=== PATIENT | male | born 1965 | race Caucasian/White ===

== ENCOUNTER 2021-04-15 19:50 | Observation (INO) ==
[2021-04-15 20:26] LABS: Basophils % 0.2 %; Hematocrit 41.6 % (37.5-50.1); Hemoglobin 14.7 g/dL (12.9-16.9); Immature Granulocytes % 0.2 % (0-4); Lymphocytes # 0.8 K/mcL (0.6-4.6); Lymphocytes % 16.4 %; Mean Corpuscular HGB Conc 35.3 g/dL (31.6-35.5); Mean Corpuscular Hemoglobin 30.3 pg (28.0-33.3); Mean Corpuscular Volume 85.8 fL (83.0-100.0); Mean Platelet Volume 9.4 fL (9.4-12.4); Monocytes # 0.4 K/mcL (0.0-1.3); Monocytes % 7.3 %; Platelet Count 219 K/mcL (140-400); Red Blood Count 4.85 M/mcL (4.19-5.50); Red Cell Distribution Width 12.5 % (11.5-14.5); Segmented Neutrophils % 75.9 %; White Blood Count 4.9 K/mcL (4.3-11.1)
[2021-04-15 20:29] LABS: Neutrophils # 3.7 K/mcL (1.6-8.9)
[2021-04-15 20:45] LABS: BUN/Creatinine Ratio 15 (6-26); Blood Urea Nitrogen 12 mg/dL (6-20); Calcium 8.5 mg/dL (8.6-10.3); Carbon Dioxide 26 mEq/L (23-29); Chloride 90 mEq/L (98-107); Glucose 211 mg/dL (70-105); Osmolality,Calculated 274 (280-300); Sodium 129 mEq/L (136-145); Troponin I < 0.03 ng/mL (< 0.04); eGFR For African Americans > 60 (> 60); eGFR For Non-African Americans > 60 (> 60)
[2021-04-15 20:49] LABS: Platelet Estimate Normal (Normal); Reactive Lymphocytes Present (Not Present)
[2021-04-15] MEDS ORDERED: *HR* FentaNYL (PF) 100 MCG/2 ML VIAL IVP ONE (22:09)
[2021-04-15] MEDS ORDERED: Ondansetron 4 MG/2 ML VIAL IVP ONE (22:09)
[2021-04-15 22:29] LABS: Bilirubin,Urine Negative (Negative); Blood,Urine Moderate (Negative); Clarity,Urine Clear (Clear); Color,Urine Yellow (Yellow); Glucose,Urine (UA) >=1000 mg/dL (Normal); Ketones,Urine Negative (Negative); Leukocyte Esterase,Urine Negative (Negative); Mucus,Urine Few per lpf (None-Few); Nitrite,Urine Negative (Negative); PH,Urine 6.5 pH Units (5.0-8.0); Protein,Urine 100 mg/dL (Neg-Trace); RBC,Urine 0-3 per hpf (0-3); Specific Gravity,Urine 1.023 (1.010-1.025); Urobilinogen,Urine Normal (Normal); WBC,Urine 0-3 per hpf (0-3)
[2021-04-15] MEDS ORDERED: Melatonin 3 MG TABLET PO PRN (23:24)
[2021-04-15] MEDS ORDERED: Naloxone 0.4 MG/ML INJ IVP PRN (23:24)
[2021-04-15] MEDS ORDERED: Ondansetron 4 MG/2 ML VIAL IVP PRN (23:24)
[2021-04-15] MEDS ORDERED: Isovue-370 500 ML BOTTLE IVP ONE (23:30)
[2021-04-16] MEDS ORDERED: 0.9 % Sodium Chloride 500 ML IVC ONE (00:13)
[2021-04-16] MEDS ORDERED: Dextrose Gel 15 GM/37.5 ML TUBE PO PRN ×2 (00:15)
[2021-04-16] MEDS ORDERED: *HR* Dextrose 50 % in Water (Syg) 50 ML SYRINGE IVP PRN (00:15)
[2021-04-16] MEDS ORDERED: D5% in Water 1,000 ML IVC PRN (00:15)
[2021-04-16 02:01] LABS: Hematocrit 40.5 % (37.5-50.1); Hemoglobin 13.7 g/dL (12.9-16.9); Mean Corpuscular HGB Conc 33.8 g/dL (31.6-35.5); Mean Corpuscular Hemoglobin 29.5 pg (28.0-33.3); Mean Corpuscular Volume 87.1 fL (83.0-100.0); Mean Platelet Volume 9.6 fL (9.4-12.4); Platelet Count 223 K/mcL (140-400); Red Blood Count 4.65 M/mcL (4.19-5.50); Red Cell Distribution Width 12.6 % (11.5-14.5); White Blood Count 5.1 K/mcL (4.3-11.1)
[2021-04-16 02:10] LABS: BUN/Creatinine Ratio 13 (6-26); Blood Urea Nitrogen 11 mg/dL (6-20); C-Reactive Protein 142 mg/L (Less than 10); Calcium 8.2 mg/dL (8.6-10.3); Carbon Dioxide 28 mEq/L (23-29); Chloride 91 mEq/L (98-107); Glucose 145 mg/dL (70-105); Lactate Dehydrogenase 271 Units/L (140-271); Osmolality,Calculated 268 (280-300); Sodium 128 mEq/L (136-145); eGFR For African Americans > 60 (> 60); eGFR For Non-African Americans > 60 (> 60)
[2021-04-16 02:29] LABS: Ferritin 1131 ng/mL (20-250)
[2021-04-16] MEDS ORDERED: Potassium Chloride Elixir 20 MEQ/15 ML UDC PO ONE (03:22)
[2021-04-16] MEDS ORDERED: Ipratropium 1 PUFF INHALER IH PRN (03:35)
[2021-04-16] MEDS: *HR* HYDROcodone/Acet 5/325 mg TABLET PO PRN ×2 (03:36→18:53)
[2021-04-16] MEDS ORDERED: 0.9 % Sodium Chloride 1,000 ML IVC SCH (04:45)
[2021-04-16 04:57] LABS: Alanine Aminotransferase 32 Units/L (7-52); Albumin 3.6 g/dL (3.5-5.7); Albumin/Globulin Ratio 1.1 (1.1-2.2); Alkaline Phosphatase 71 Units/L (34-104); Aspartate Amino Transferase 33 Units/L (13-39); Bilirubin,Direct 0.2 mg/dL (0.0-0.2); Bilirubin,Indirect 0.6 mg/dL (0.0-1.0); Bilirubin,Total 0.8 mg/dL (0.3-1.0); Globulin 3.4 g/dL (2.4-3.5)
[2021-04-16] MEDS: *HR* Enoxaparin 40 MG/0.4 ML SYRINGE SQ SCH (06:14)
[2021-04-16] MEDS: Insulin LISPRO 300 UNITS/3 ML VIAL SUBQ SCH ×3 (09:15→18:53)
[2021-04-16] MEDS: 0.9 % Sodium Chloride 1,000 ML IVC SCH (19:49)
[2021-04-17] MEDS: 0.9 % Sodium Chloride 1,000 ML IVC SCH ×2 (05:42→09:56)
[2021-04-17] MEDS: *HR* Enoxaparin 40 MG/0.4 ML SYRINGE SQ SCH (05:42)
[2021-04-17] MEDS ORDERED: Cholecalciferol (D-3) 1,000 UNIT (25MCG) TABLET PO SCH (09:00)
[2021-04-17] MEDS: *HR* HYDROcodone/Acet 5/325 mg TABLET PO PRN (09:48)
[2021-04-17] MEDS: Insulin LISPRO 300 UNITS/3 ML VIAL SUBQ SCH ×2 (09:49→13:48)
[2021-04-17 10:43] LABS: BUN/Creatinine Ratio 19 (6-26); Blood Urea Nitrogen 14 mg/dL (6-20); Calcium 8.6 mg/dL (8.6-10.3); Carbon Dioxide 29 mEq/L (23-29); Chloride 100 mEq/L (98-107); Glucose 228 mg/dL (70-105); Osmolality,Calculated 288 (280-300); Potassium 4.1 mEq/L (3.5-5.1); Sodium 135 mEq/L (136-145); eGFR For African Americans > 60 (> 60); eGFR For Non-African Americans > 60 (> 60)
[2021-04-17 16:35] VITALS: BP 117/76; PULSE 72; TEMP 97.9; O2SAT 94
== END 2021-04-17 20:02 | disposition home or self-care (01) ==
LOC: 3NENU 19:50 → EMEROOARM 19:50 → 3NENU 04-16 00:34
PROVIDERS: ADMIT Internal Medicine; ATTEND Internal Medicine